=== PATIENT | female | born 1960 | race Caucasian/White ===

== ENCOUNTER 2024-02-04 15:35 | Inpatient (IN) | payer OTHER, SELFPAY ==
[2024-02-04] VITALS (14 sets, daily range): BP systolic 115–164; BP diastolic 50–85; BMI 26.8; BMI 26.0
--- NOTE | 2024-02-04 07:59 | ED.GENMED ---
History of Present Illness
<VIVI Saenz - Last Filed: 02/04/24 14:20>
General
Chief Complaint: Abdominal Pain
Source: patient
Exam Limitations: none
Time Seen by Provider: 02/04/24 07:50
Nursing documentation reviewed up to this point in time: agreed with
Travel History
Have you had any contact with someone who has COVID-19?: No
Do you have any symptoms of coronavirus? Fever > 100 degrees, chills, cough, shortness of breath, sore throat, loss of taste or smell, muscle aches, or headache?: No
History of Present Illness
History of Present Illness:
63-year-old female with past medical history of polycystic kidney disease, hypertension depression, pyelonephritis presents to the ER complaining of upper abdominal pain. She reports the past several days she has felt achy feverish and complains of
abdominal pain which radiates to her back. She points to her upper abdominal region.
She denies any nausea vomiting. She does not have an appetite. She is drinking but not eating as much.
Past History
<VIVI Saenz - Last Filed: 02/04/24 14:20>
Past History
ED Past Medical History: HTN and Other (polycystic kidney disease, diverticulosis)
ED Past Surgical History: Other (HERNIA REPAIR, TUBAL LIGATION)
Social History
Tobacco: Other (non contributory)
Alcohol: Other (non contributory)
Employment: Employed
Review of Systems
<VIVI Saenz - Last Filed: 02/04/24 14:20>
Review of Systems
Allergies reviewed?: Yes
All Other Systems: ROS reviewed and negative except as documented in HPI and ROS
Constitutional: Reports fever and fatigue
EENT: Reports no symptoms
Respiratory: Reports no symptoms
Cardiac: Reports no symptoms
ABD/GI: Reports abdominal pain; Denies vomiting
: Reports no symptoms
Musculoskeletal: Reports no symptoms
Skin: Reports no symptoms
Neurological: Reports no symptoms
Psychiatric: Reports no symptoms
Phy Exam
<VIVI Saenz - Last Filed: 02/04/24 14:20>
General Physical Exam
General Presentation: no apparent distress
General age: appears stated age
General Skin: warm and dry
General Habitus: normal
General Mental: alert
General Hydration: appears well hydrated
Cardiovascular Exam
Cardiovascular Exam: regular rate/rhythm, no murmur and normal peripheral pulses
Pulmonary Exam
Pulmonary Exam: lungs clear and no respiratory distress
Gastrointestinal Exam
Gastrointestinal Exam: soft and other (tender throughout abdomen worse RUQ )
Neurological Exam
Neurological Exam: alert and oriented x3
Musculoskeletal Exam
Musculoskeletal Exam: full ROM
Skin Exam
Skin Exam: normal color and warm/dry
Psychiatric Exam
Psychiatric Exam: normal mood/affect
Course
<VIVI Saenz - Last Filed: 02/04/24 14:20>
Orders/Labs/Results
Orders:
Orders
02/04/24 08:02
IV Insert/Care/Rem.- Treatment PRN
02/04/24 08:05
0.9% Sodium Chloride 1000 ml [Nss] 1,000 ml IV BOLUS
US Abdomen Complete/Upper Urgent
Comment:
Reason For Exam: ruq pain
02/04/24 08:33
Complete Blood Count/With Diff Urgent
Comprehensive Metabolic Panel Urgent
Lipase Urgent
02/04/24 09:34
CT Abd/Pel (IV only)-DH only Urgent
Comment:
Reason For Exam: abd pain
02/04/24 10:38
UA Reflex to Culture [Urinalysis Reflex To Culture] Urgent
Date Specimen was Collected: 02/04/24
Time Specimen was Collected: 10:31
Urine Microscopic Reflex Cult Urgent
Urine Culture Urgent
APRIL Source: U
Specimen Description:
Date Specimen was Collected: 02/04/24
Time Specimen was Collected: 10:31
02/04/24 12:33
Acetaminophen [Tylenol] 650 mg PO NOW STA
02/04/24 12:39
Chest [CR Chest - 2 Views ] Urgent
Comment:
Reason For Exam: fever
02/04/24 13:03
COVID-19 Antigen Urgent
Source: Nasal Swab
Lactic Acid Q4H
Comment: CANCEL 2nd LACTIC ACID IF 1st LACTIC ACID IS LESS THAN 2
Blood Culture Q30M
APRIL Source: Blood/Venous
Specimen Description:
Influenza A+B Rapid Molecular Urgent
APRIL Source: Nasal Swab
Specimen Description:
02/04/24 13:42
Blood Culture Q30M
APRIL Source: Blood/Venous
Specimen Description:
Abnormal Lab Results
02/04/24 02/04/24
08:33 10:38
RBC 3.59 L 10^6/uL
(4.20-5.40)
Hct 33.4 L %
(37.0-47.0)
MCH 33.7 H pg
(27.0-31.0)
Absolute Neuts (auto) 6.9 H 10^3/uL
(1.4-6.5)
Absolute Lymphs (auto) 0.7 L 10^3/uL
(1.2-3.4)
Absolute Monos (auto) 0.8 H 10^3/uL
(0.1-0.6)
Neutrophils % 82.4 H %
(42.2-75.2)
Lymphocytes % 7.7 L %
(20.5-51.1)
Sodium 129 L mmol/L
(135-145)
Glucose 110 H mg/dl
(70-99)
Total Protein 6.2 L g/dl
(6.3-8.2)
Lipase 21 L U/L
(23-300)
Ur Occult Blood Reflex 1+ A
(Negative)
Leukocyte Esterase Rfl 1+ A
(Negative)
02/04/24 08:33
02/04/24 08:33
Vital Signs
Initial and Last Documented VS:
Initial Vital Signs
Temp Pulse Resp BP Pulse Ox
100.9 F H 101 20 135/65 99
02/04/24 07:16 02/04/24 07:16 02/04/24 07:16 02/04/24 07:16 02/04/24 07:16
Last Documented Vital Signs
Temp Pulse Resp BP Pulse Ox
100 F 108 18 144/75 95
02/04/24 12:20 02/04/24 13:00 02/04/24 13:00 02/04/24 13:00 02/04/24 13:00
Deburring Machine Operator consulted with Physician
Deburring Machine Operator consulted with physician?: Yes
Name of Physician Consulted: Chun
<Ashutosh Mccollum MD - Last Filed: 02/04/24 12:51>
Orders/Labs/Results
Orders:
Orders
02/04/24 08:02
IV Insert/Care/Rem.- Treatment PRN
02/04/24 08:05
0.9% Sodium Chloride 1000 ml [Nss] 1,000 ml IV BOLUS
US Abdomen Complete/Upper Urgent
Comment:
Reason For Exam: ruq pain
02/04/24 08:33
Complete Blood Count/With Diff Urgent
Comprehensive Metabolic Panel Urgent
Lipase Urgent
02/04/24 09:34
CT Abd/Pel (IV only)-DH only Urgent
Comment:
Reason For Exam: abd pain
02/04/24 10:38
UA Reflex to Culture [Urinalysis Reflex To Culture] Urgent
Date Specimen was Collected: 02/04/24
Time Specimen was Collected: 10:31
Urine Microscopic Reflex Cult Urgent
Urine Culture Urgent
APRIL Source: U
Specimen Description:
Date Specimen was Collected: 02/04/24
Time Specimen was Collected: 10:31
02/04/24 12:33
Acetaminophen [Tylenol] 650 mg PO NOW STA
02/04/24 12:39
Chest [CR Chest - 2 Views ] Urgent
Comment:
Reason For Exam: fever
02/04/24 13:03
COVID-19 Antigen Urgent
Source: Nasal Swab
Lactic Acid Q4H
Comment: CANCEL 2nd LACTIC ACID IF 1st LACTIC ACID IS LESS THAN 2
Blood Culture Q30M
APRIL Source: Blood/Venous
Specimen Description:
Influenza A+B Rapid Molecular Urgent
APRIL Source: Nasal Swab
Specimen Description:
02/04/24 13:42
Blood Culture Q30M
APRIL Source: Blood/Venous
Specimen Description:
Abnormal Lab Results
02/04/24 02/04/24
08:33 10:38
RBC 3.59 L 10^6/uL
(4.20-5.40)
Hct 33.4 L %
(37.0-47.0)
MCH 33.7 H pg
(27.0-31.0)
Absolute Neuts (auto) 6.9 H 10^3/uL
(1.4-6.5)
Absolute Lymphs (auto) 0.7 L 10^3/uL
(1.2-3.4)
Absolute Monos (auto) 0.8 H 10^3/uL
(0.1-0.6)
Neutrophils % 82.4 H %
(42.2-75.2)
Lymphocytes % 7.7 L %
(20.5-51.1)
Sodium 129 L mmol/L
(135-145)
Glucose 110 H mg/dl
(70-99)
Total Protein 6.2 L g/dl
(6.3-8.2)
Lipase 21 L U/L
(23-300)
Ur Occult Blood Reflex 1+ A
(Negative)
Leukocyte Esterase Rfl 1+ A
(Negative)
02/04/24 08:33
02/04/24 08:33
Vital Signs
Initial and Last Documented VS:
Initial Vital Signs
Temp Pulse Resp BP Pulse Ox
100.9 F H 101 20 135/65 99
02/04/24 07:16 02/04/24 07:16 02/04/24 07:16 02/04/24 07:16 02/04/24 07:16
Last Documented Vital Signs
Temp Pulse Resp BP Pulse Ox
100 F 108 18 144/75 95
02/04/24 12:20 02/04/24 13:00 02/04/24 13:00 02/04/24 13:00 02/04/24 13:00
<VIVI Saenz - Last Filed: 02/04/24 14:20>
MDM/Problems Addressed
Differential Diagnosis Includes:
not limited to' biliary colic diverticulitis, uti/, pyelonephritis
MDM/Problems Addressed:
Patient is a 63-year-old female who presents to the ER complaining of fever chills aches and upper abdominal pain. On exam she is very tender throughout the upper abdominal area slight increase in left upper quadrant. She did arrive with a
temperature of 100.9. She denies any cough denies any urinary frequency urgency dysuria. Denies any nausea vomiting. Has felt this pain radiates to her back. On exam she has a low-grade temp as documented with a normal white count, her sodium is
mildly low at 129 urine negative. No acute findings on CAT scan or ultrasound.
Chest x-ray done though patient has no symptoms and negative. With patient's tenderness on exam in the upper abdominal region with fever and no clear diagnosis on that for further workup. Patient also found to be hyponatremic as well
<VIVI Saenz - Last Filed: 02/04/24 14:20>
*Radiology
Radiology exam reviewed: radiology read reviewed
*Critical Care Note
Total Time (30-74mins, 75-104mins- exclusive of procedures): Not Applicable
ED Attending Note
<VIVI Saenz - Last Filed: 02/04/24 14:20>
-
Portions of this chart may have been created with voice recognition software.� Occasional wrong word or��sound alike� substitutions may have occurred due to the inherent limitations of voice recognition software.
<Ashutosh Mccollum MD - Last Filed: 02/04/24 12:51>
ED Attending Note
Patient seen and examined by attending physician: Yes
I performed the substantive portion of visit, reviewed & personally made and approve the management plan that is documented in note by myself or NELY.: Yes
ED Attending Note:
2 days of general abdominal pain. Some nausea. Some vague back pain. No cough congestion urinary symptoms or other complaints. Symptoms are moderate in nature. Describes as 6 out of 10.
On exam patient's lungs are clear and equal. No CVA tenderness. Warm and dry. Perfusing well. Neck supple. Heart regular rate and rhythm no murmur. Abdomen is soft but diffuse tenderness nonlocalizing mostly epigastric and diffuse lower
quadrants. No rebound or guarding no mass or hernia
Patient has a fever. Etiology of symptoms unknown. Will chest chest x-ray COVID and flu although suspect these will be okay. Given her degree of tenderness and discomfort patient warrants inpatient management will add blood cultures and lactic
acid
Discharge Plan
Departure
Patient Disposition: Admit
Date of Disposition: 02/04/24
Time of Disposition: 14:19
Admit to: Med/Surg
Admit to doctor: hospitalist
Presentation/result/management discussed w/ accepting MD/DO: Hospitalist
Patient with high blood pressure during this ER visit?: Yes
Condition: Fair
Covid-19: Not Applicable
Discharge Problem:
Hyponatremia, Fever, Abdominal pain
Prescriptions:
No Action
escitalopram oxalate 20 MG tablet
20 mg PO DAILY
acetaminophen 325 MG tablet
650 mg PO Q4HPRN PRN (Reason: mild pain/LINCOLN/temp> 100.4F) 0RF
loperamide 2 MG capsule
2 mg PO Q6HPRN PRN (Reason: diarrhea) 0RF
pantoprazole 40 MG tablet,delayed release (DR/EC)
40 mg PO DAILY Qty: 30 0RF
lisinopril 10 MG tablet
10 mg PO DAILY Qty: 30 0RF
Referrals:
Calli Klein MD [Family Provider] -
Interventions
Interventions:
*Risk Screen - Suicide Last Done: 02/04/24 07:20
*General Assessment Last Done: 02/04/24 07:20
*Neglect/Abuse Screening Last Done: 02/04/24 07:20
ED- Fall Risk Assessment Last Done: 02/04/24 07:20
*ED COVID-19 Vaccine History Last Done: 02/04/24 07:20
UZ-Syzdmc-Pykmaiyimd Assessment Last Done: 02/04/24 08:35
ED- Neurological Assessment Last Done: 02/04/24 08:35
ED-Skin Assessment Last Done: 02/04/24 08:35
Discharge Date and Time
Print Language: THAI
--- NOTE | 2024-02-04 08:05 | EDRN ---
Laurence Lee NP in room w/ pt.
[2024-02-04] MEDS: NSS 1000 IV ×2 (08:42→17:57)
[2024-02-04 08:47] LABS: % Basophils 0.1 % (0-2); % Immature Granulocytes 0.5 % (0-0.5); % Lymphocytes 7.7 % (20.5-51.1); % Monocytes 9.3 % (1.7-9.3); % Neutrophils 82.4 % (42.2-75.2); Absolute Lymphocytes 0.7 10^3/uL (1.2-3.4); Absolute Monocytes 0.8 10^3/uL (0.1-0.6); Absolute Neutrophils 6.9 10^3/uL (1.4-6.5); Hematocrit 33.4 % (37.0-47.0); Hemoglobin 12.1 g/dL (12.0-16.0); Mean Corp Hgb Conc. 36.2 g/dL (33.0-37.0); Mean Corpuscular Hgb 33.7 pg (27.0-31.0); Mean Platelet Volume 10.4 fL (7.4-10.4); Nucleated Red Blood Cells % 0 %; Platelet Count 132 10^3/uL (130-400); Red Blood Cell Count 3.59 10^6/uL (4.20-5.40); Red Cell Dist. Width 12.2 % (11.5-14.5); White Blood Cell Count 8.4 10^3/uL (4.8-10.8)
[2024-02-04 08:56] LABS: ALT (SGPT) 19 U/L (0-35); AST (SGOT) 22 U/L (14-36); Albumin 3.7 g/dl (3.5-5.0); Alkaline Phosphatase 83 U/L (38-126); Blood Urea Nitrogen 14 mg/dl (7-17); Calcium 8.7 mg/dl (8.4-10.2); Carbon Dioxide 25 mmol/L (22-30); Chloride 100 mmol/L (98-107); Glucose 110 mg/dl (70-99); Lipase 21 U/L (23-300); Potassium 3.6 mmol/L (3.5-5.1); Sodium 129 mmol/L (135-145); Total Protein 6.2 g/dl (6.3-8.2); eGFR > 60.00
[2024-02-04 11:00] LABS: Urine Albumin Negative (Neg - Trace); Urine Bilirubin Negative (Negative); Urine Character Clear (Clear); Urine Color Yellow; Urine Glucose Negative (Negative); Urine Ketone Negative (Negative); Urine Leukocyte 1+ (Negative); Urine Nitrite Negative (Negative); Urine Occult Blood 1+ (Negative); Urine Urobilinogen Negative (Neg - 1+); Urine pH 6.5 (5.0-9.0)
[2024-02-04 11:18] LABS: Urine Squamous Cell 16-20 /LPF (Few)
[2024-02-04 11:20] LABS: Urine Red Blood Cell 0-2 /HPF (0-2)
[2024-02-04] MEDS: TYLENOL 650 MG PO ×2 (12:56→19:59)
[2024-02-04 13:26] LABS: Lactic Acid 0.9 mmol/L (0.7-2.0)
[2024-02-04 13:31] LABS: COVID-19 Antigen Negative (Negative)
--- NOTE | 2024-02-04 14:51 | EDRN ---
Pt is not cold though is hot and sweaty at this time.
--- NOTE | 2024-02-04 15:00 | EDRN ---
Dr. Weaver in to see pt at this time.
--- NOTE | 2024-02-04 15:10 | HPS.HSE ---
Family Physician
-
Family Physician: Calli Klein
Chief Complaint
-
Abd pain.
History of Present Illness
63-year-old woman with past medical history of:
polycystic kidney disease,
hypertension
depression,
pyelonephritis
Comes in complaining of upper abdominal pain. For the past several days she has felt achy, feverish, and has had mid upper abdominal pain with radiation to her back. She denies any nausea vomiting. She does not have an appetite. She is drinking
but not eating as much. States that she feels like there is a 'tight belt' over her abd. She says she recently ate a 'bad pizza.' She has had abd surgery before.
Medical History
Past Medical History
Past Medical History: Reports Other
Additional Past Medical History:
essential HTN
polycystic kidney disease,
diverticulosis
HERNIA REPAIR,
TUBAL LIGATION
Past Surgical History: Reports Other
Additional Past Surgical History:
See above
Social History
Tobacco: Non-smoker
Alcohol: Occasional
Drug: None
Personal:
Living: With Family
Family History
Family History: Not pertinent
Allergies / Home Medications
Allergies reflects when Allergies were last updated in [facility].
Home Medications with original date entered in [facility]
Allergy/Medication List:
Allergies
Allergy/AdvReac Type Severity Reaction Status Date / Time
morphine Allergy Vomiting Verified 01/14/22 19:34
Home Medications
escitalopram oxalate 20 mg tablet 20 mg PO DAILY Mental Health/Anxiety 06/30/16
lisinopril 10 mg tablet 10 mg PO DAILY #30 tabs 01/21/22
pantoprazole 40 mg tablet,delayed release 40 mg PO DAILY #30 tabs 01/21/22
escitalopram oxalate 5 mg tablet 5 mg PO DAILY 02/04/24
magnesium citrate 1 cap PO DAILY 02/04/24
therapeutic multivitamin 1 tab PO DAILY 02/04/24
Review of Systems
-
History Source: Patient
A 12 point ROS was completed and negative except as noted: Yes
Physical Exam
Vital Signs
Vital Signs
Temp Pulse Resp BP Pulse Ox
99.2 F 94 16 127/85 95
02/04/24 14:48 02/04/24 14:48 02/04/24 14:48 02/04/24 14:48 02/04/24 14:48
Physical Exam
General: Well Developed, Well Nourished, No Apparent Distress, Comfortable and Conversant
HEENT: NormoCephalic, Moist mucous membranes, Atraumatic, No Ptosis, Nose Appears Normal and Ears Appear Normal
Respiratory: Clear
Cardiac: S1/S2 and Regular Rhythm
GI: Soft, Non Distended and Tender (mildly, throughout entire abd.)
Musculoskeletal: No Clubbing, No Cyanosis and No Edema
Skin: Warm and Dry; No Rash or Jaundice
Neuro: Awake, Alert, Oriented and AO x 3
Psych: Calm
Laboratory Results
-
02/04/24 08:33
02/04/24 08:33
Laboratory Results
Lactic Acid Cancelled 02/04/24 17:00
Total Bilirubin 1.0 mg/dl (0.2-1.3) 02/04/24 08:33
AST 22 U/L (14-36) 02/04/24 08:33
ALT 19 U/L (0-35) 02/04/24 08:33
Alkaline Phosphatase 83 U/L (38-126) 02/04/24 08:33
Lipase 21 U/L (23-300) L 02/04/24 08:33
Data Reviewed
-
Lab Data: Labs Reviewed by me
Impression/Plan
-
IMPRESSION:
63 woman with abd pain. Abd CT does not show active disease. Abd US does not show active dz.
PLAN:
1. Abd pain, source not known, differential includes:
Viral gastroenteritis [Common]
Food poisoning [the 'bad pizza']
Adhesion [past abdominal surgery]
Heart related [atypical presentation]
Plan is to:
Advance diet as tolerated
MER
Repeat labs in am
2. Low Na, likely hypovolemic hyponatremia
Saline
Recheck overnight
Code: DNR ( at bedside aware)
VCD for DVTp
--- NOTE | 2024-02-04 16:12 | EDRN ---
Pt placed on quality assurance monitor at this time as ordered in admit orders, NSR.
[2024-02-04 17:43] LABS: Troponin I < 0.012 ng/ml
--- NOTE | 2024-02-04 18:27 | PTCARENOTE ---
pt arrive to unit at 1827 via stretcher from ED, at bedside. VSS. assessment and admissions completed by this nurse. pt AAOx3, oriented to unit, call recio in reach.
[2024-02-04 20:23] LABS: Troponin I 0.019 ng/ml
[2024-02-05 00:33] LABS: Troponin I < 0.012 ng/ml
[2024-02-05 04:00] VITALS: BP 152/71
[2024-02-05] MEDS: NSS 1000 IV ×2 (04:22→14:35)
[2024-02-05] MEDS: TYLENOL 650 MG PO ×3 (04:26→19:46)
[2024-02-05 05:54] LABS: Hematocrit 29.8 % (37.0-47.0); Hemoglobin 10.7 g/dL (12.0-16.0); Mean Corp Hgb Conc. 35.9 g/dL (33.0-37.0); Mean Corpuscular Volume 94.6 fL (81.0-99.0); Mean Platelet Volume 10.9 fL (7.4-10.4); Platelet Count 113 10^3/uL (130-400); Red Blood Cell Count 3.15 10^6/uL (4.20-5.40)
[2024-02-05 06:00] VITALS: BMI 26.4
[2024-02-05 06:22] LABS: Blood Urea Nitrogen 11 mg/dl (7-17); Calcium 7.9 mg/dl (8.4-10.2); Carbon Dioxide 23 mmol/L (22-30); Chloride 105 mmol/L (98-107); Estimated Creatinine Clearance 79 ml/min; Glucose 124 mg/dl (70-99); Lipase 20 U/L (23-300); Potassium 3.3 mmol/L (3.5-5.1); Sodium 134 mmol/L (135-145); eGFR > 60.00
[2024-02-05 07:00] VITALS: BP 132/71
[2024-02-05] MEDS: PROTONIX 40 MG PO ×2 (08:07→19:46)
[2024-02-05] MEDS: LEXAPRO 20 MG PO (08:07)
[2024-02-05] MEDS: ZESTRIL 10 MG PO (08:07)
[2024-02-05] MEDS: THERAGRAN 1 TABLET PO (08:07)
[2024-02-05] MEDS: MAGNESIUM OXIDE 500 MG PO (08:07)
[2024-02-05] MEDS: LEXAPRO 5 MG PO (08:07)
[2024-02-05] MEDS: STERILE WATER FOR INJECTION 10 ML IV (09:21)
[2024-02-05] MEDS: MAXIPIME 2000 MG IV (09:21)
[2024-02-05 09:52] LABS: Glycohemoglobin (HgbA1c) 5.1 % (4.0-5.6)
[2024-02-05 11:00] VITALS: BP 140/75
--- NOTE | 2024-02-05 13:01 | W.PN.HOSP.TC ---
Today's Communication/Plan
-
Continue antibiotics
ID consult
GI consult
Assessment / Plan
Assessment / Plan
Gen-AAOx3, NAD
HEENT-NC, AT, anicteric, clear oral mm
Neck-supple
CV-reg, no M, +S1/S2
Lungs-clear B/L
Abd-soft, NT, ND
Ext-no edema
Musculoskeletal-no cyanosis, clubbing
Skin-warm and dry
Neuro-grossly non-focal
Psych-calm, cooperative
E. coli sepsis -likely GI source given presentation with abdominal pain. Urinalysis without significant pyuria. Hemodynamically stable. WBC count normal. Blood cultures noted. Continue cefepime. Consult ID. Transmucosal GI migration of
bacteria suspected. Recommend outpatient colonoscopy, discussed with patient. Last colonoscopy was about 10 years ago. Follows up with Dr. Douglas.
Given persistent epigastric discomfort will consult GI. She denies melena or hematochezia.
Currently on clear liquid diet. Still with anorexia.
Abdominal ultrasound on admission without cholelithiasis or biliary ductal dilation. Hepatic and bilateral renal cysts consistent with polycystic kidney disease noted.
CT abdomen pelvis with IV contrast without acute disease.
Of note patient had E. coli bacteremia in the past, attributed to UTI.
Chronic normocytic anemia -hemoglobin at baseline.
Acute thrombocytopenia -possibly due to sepsis. Monitor for now.
Hyponatremia -possibly hypovolemic. Sodium improving.
Hypokalemia -check magnesium. Replete potassium.
Essential hypertension -stable.
DNR
Anticipated Discharge: > 48 hours
Subjective/Interval History
-
Date of Service: February 05, 2024
Patient seen and examined. Complaining of anorexia, abdominal discomfort. Denies nausea.
Objective Data
-
Labs:
Laboratory Results
02/05/24
05:27
WBC 7.0
Hgb 10.7 L
Hct 29.8 L
Plt Count 113 L
Sodium 134 L
Potassium 3.3 L
Chloride 105
Carbon Dioxide 23
BUN 11
Creatinine 0.6
Glucose 124 H
Calcium 7.9 L
Vital Signs:
Vital Signs
Temp Pulse Resp BP Pulse Ox
103.1 F H 103 18 140/75 94
02/05/24 11:00 02/05/24 11:00 02/05/24 11:00 02/05/24 11:00 02/05/24 11:00
I&O
02/04/24 02/05/24 02/06/24
06:59 06:59 06:59
Intake Total 1560 / 1560
Balance 1560 / 1560
Review of Systems
-
History Source: Patient
All other systems: Reviewed and negative
[2024-02-05 13:24] LABS: Magnesium 1.8 mg/dl (1.6-2.3)
[2024-02-05] MEDS: KCL 40 MEQ PO (14:30)
[2024-02-05] MEDS: NSS IV (14:43)
[2024-02-05 15:00] VITALS: BP 126/63
--- NOTE | 2024-02-05 16:07 | CON.ID ---
Consultation
-
Date/Time Consultation Requested: 02/05/24 8:41
Date/Time Consultation Performed: 02/05/24 16:08
Requesting Provider: Dr Prescott
Performing Provider: Dr Calderón
Reason for Consultation: Abd pain.
Chief Complaint / Past History
Chief Complaint
abdominal pain
History of Present Illness
Ms Shirley is a 63 year old feamle with AD PCKD who presented here last night for upper abdominal pain. Reports several days of malaise, subjective fevers, abdominal pain with radiation to the bck. No nausea or vomiting. Poor appetite. Relates the
pain to 'bad pizza'
Since arrival here has been febrile to 103.1 - uptrending, bp overall stable, intermittently mildly tachycardic, wbc 8.4 on arrival now 7.0, hgb 10.7, plt 113, L shift is noted, cr 0.6, lactic acid 0.9, a1c 5.1, t bili 1.0, ast 22, alkt 19, alk phos
83, lipase 20, covid pcr neg, 02/03 CXR: no acute disease, CT a/p: no acute process, innumerable cysts in the liver/kidneys, diverticulosis without diverticulitis, US: no acute disease, one of two blood cultures with E coli by PCR, currently on
cefepime 2 q12 first dose was about 9 AM, qtc acceptable, ID is consulted for assistance with management.
Past History
Additional Past Medical History:
hypertension
depression,
pyelonephritis
Additional Past Surgical History:
essential HTN
polycystic kidney disease,
diverticulosis
HERNIA REPAIR,
TUBAL LIGATION
Allergy History:
morphine Allergy (Verified 01/14/22 19:34)
Vomiting
Medications Reviewed: Yes
Social History
Tobacco: Non-Smoker
Alcohol: Occasional
Drug: None
Family History
Family History: Not Pertinent
Review of Systems
Review of Systems
General: Fever and Chills
All systems: All other systems were reviewed and were negative
Vital Signs
Temp Pulse Resp BP Pulse Ox
99.0 F 93 18 126/63 97
02/05/24 15:00 02/05/24 15:00 02/05/24 15:00 02/05/24 15:00 02/05/24 15:00
Physical Exam
Physical Exam
Constitutional: No Acute Distress
Cardiovascular: Regular Rate and S1/S2; Negative Murmur or Rub
Pulmonary: Clear and Symmetric; Negative Wheezes, Rales or Rhonchi
Gastrointestinal: Soft, Non Tender, Non Distended, Normal Bowel Sounds and Other (no peritoneal signs)
Skin: Warm and Dry; Negative Rash or Jaundice
Lab / Diagnostic Study Results
02/05/24 05:27
02/05/24 05:27
Abs Immat Gran (auto) 0.0 10^3/uL (0-0.05) 02/04/24 08:33
Absolute Neuts (auto) 6.9 10^3/uL (1.4-6.5) H 02/04/24 08:33
Absolute Lymphs (auto) 0.7 10^3/uL (1.2-3.4) L 02/04/24 08:33
Absolute Monos (auto) 0.8 10^3/uL (0.1-0.6) H 02/04/24 08:33
Absolute Basos (auto) 0.0 10^3/uL (0-0.2) 02/04/24 08:33
Immature Gran % 0.5 % (0-0.5) 02/04/24 08:33
Neutrophils % 82.4 % (42.2-75.2) H 02/04/24 08:33
Lymphocytes % 7.7 % (20.5-51.1) L 02/04/24 08:33
Monocytes % 9.3 % (1.7-9.3) 02/04/24 08:33
Eosinophils % 0.0 % (0-6) 02/04/24 08:33
Basophils % 0.1 % (0-2) 02/04/24 08:33
Lactic Acid Cancelled 02/04/24 17:00
Ur Squamous Epith Cells 16-20 /LPF (Few) 02/04/24 10:38
Microbiology Results
Micro:
02/04/24 13:03 Blood Culture - Preliminary
Blood/Venous No Growth in 24 hours- Final report to follow
02/04/24 13:42 Blood Culture - Preliminary
Blood/Venous Escherichia coli
Gram Stain - Final
02/04/24 10:38 Urine Culture - Final
Urine
02/04/24 13:03 Influenza Types A & B (ERICK) - Final
Nasal Swab Negative for Influenza A & B, NAAT
Negative results must be combined with clinical observations
and patient history.
Nucleic Acid Amplification test (NAAT)performed on the
[employer] ID NOW platform.
Assessment / Plan
E coli Bacteremia
AD PCKD
Diverticulosis without diverticulitis
- follow blood culture for finalized ID and sensi
- no need to repeat blood cultures for gram negative
- with negative CT a/p (though without contrast) and negative abd US, ua without significant pyuria agree that translocation or gastroenteritis may be the ultimate etiology
- start ceftriaxone, stop cefepime
- qtc acceptable
- follow clinically
--- NOTE | 2024-02-05 16:12 | CON.GI ---
Addendum entered and electronically signed by Radha Lott DO 02/06/24 12:57:
I saw and examined the patient.
The ALUMINUM POURER or PA's note was reviewed and I agree with the note.
Comment: Sarah seen in follow-up today, at bedside. She reports abdominal pain still present, slightly improved today. Unclear source of recurrent sepsis and relation to acute on chronic abdominal pain. She has known polycystic
kidney/liver disease. Given her description of her pain, wrapping around to her back, I am wondering if she possibly had a cyst rupture, leading to her clinical picture. She does mention that this was brought up the last time she had this
presentation in 2021, but never confirmed. Upon review of prior workup, she has never had an MRI. Recommend MRI/MRCP for further evaluation and r/o pancreaticobiliary source. Last colonoscopy in 2018-- if MRI normal, will discuss performing
colonoscopy. That said, it would be strange for her to have this same presentation twice before, with long periods of being asymptomatic and clearing blood cultures indicating source control, if the colon truly was the source of her bacteremia.
Addendum entered and electronically signed by Amanda Sims MD 02/05/24 17:28:
I saw and examined the patient.
The ALUMINUM POURER's note was reviewed and I agree with the note.
E. coli sepsis-possible translocation. Negative UA. Prior history of UTI/sepsis
History of polycystic kidney disease/hepatic cyst -CT abdomen with IV contrast- no acute pathology
Epigastric discomfort-liver test normal. Lipase 20.Last EGD 2017
plan
Continue antibiotics as per ID
PPI twice daily
If abdominal pain persist will consider EGD vs repeat imaging
If diarrhea will recommend stool studies for infection
Continue further care per medical team
Original Note:
Consultation
-
Date/Time Consultation Requested: 02/05/24 1310
Date/Time Consultation Performed: 02/05/24 1615
Requesting Provider: Kip Prescott MD
Performing Provider: VIVI Gamino, Amanda Sims MD
Reason for Consultation: anemia, sepsis, abdominal pain
Medical History
Chief Complaint / HPI
Chief Complaint: abdominal pain
History of Present Illness:
Pt is a 63yo presents with hx HTN, depression, polycystic kidney disease, pyelonephritis with admission 02/03 with mid upper abdominal pain with radiation to back and feeling of tight belt. On admission LFT's and lipase normal. Pt fever 103.1 and
Ecoli noted on blood culture with mixed sayda in urine. In reviewing with patient noted with Ecoli bacteremia in 2019 and recurrent sepsis in 2021. Pt states these symptoms began on with abdominal pain and fever on Monday. She had
decreased appetite and continued abdominal pain up to 03/04 now 01/02. Pain worse with deep breath and pressure to abdomen with feeling of belt like pain. She admits to chronic GERD on Protonix daily. She currently denies dysphagia, nausea,
vomiting, diarrhea, constipation, blood or black in stools. Last EGD 2017 Dr. Douglas no castillo's, gastritis, normal duodenum, 2018 colonoscopy [facility] perianal skin tags, IH, diverticulosis.
02/03 US with no cholelithiasis or bile duct dilation, Hepatic and bilateral renal cysts in keeping with autosomal dominant polycystic kidney disease.
02/03 CT A/P with IV only no acute process in abdomen and pelvis, innumerable hepatic and renal cysts with polypcystic disease, diverticulosis
02/03 CXR No acute disease of the chest
Past Medical History
Past Medical History: HTN, Psychiatric (depression) and Other (polycystic kidney disease, diverticulosis, hernia repair, tubal ligation, pyelonephritis, sepsis in 2019 ecoli and 2021 )
Social History
Tobacco: Non-Smoker
Alcohol: Occasional (3 drinks 1 time per week)
Drug: None
Personal:
Living: With Family
Employment: Employed
Family History
Family History: Reviewed & Not Pertinent
Allergies / Home Medications
Allergy/AdvReac Type Severity Reaction Status Date / Time
morphine Allergy Vomiting Verified 01/14/22 19:34
�Medication �Instructions �Recorded
escitalopram oxalate 20 mg tablet 20 mg PO DAILY Mental 06/30/16
Health/Anxiety
lisinopril 10 mg tablet 10 mg PO DAILY #30 tabs 01/21/22
pantoprazole 40 mg tablet,delayed 40 mg PO DAILY #30 tabs 01/21/22
release
escitalopram oxalate 5 mg tablet 5 mg PO DAILY Mental Health/Anxiety 02/04/24
magnesium citrate 1 cap PO DAILY Supplement 02/04/24
therapeutic multivitamin 1 tab PO DAILY Supplement 02/04/24
Review of Systems
-
History Source: Patient and Family
Constitutional: Reports Fever and Fatigue
EENT: Reports No Symptoms
Respiratory: Reports No Symptoms
Abdomen/GI: Reports Abdominal Pain and Other (chronic GERD on PPI, change in stool color )
: Reports No Symptoms
Musculoskeletal: Reports No Symptoms
Skin: Reports No Symptoms
Neurological: Reports Weakness
Endocrine: Reports No Symptoms
Hematologic/Lymphatic: Reports No Symptoms
Vital Signs
Temp Pulse Resp BP Pulse Ox
99.0 F 93 18 126/63 97
02/05/24 15:00 02/05/24 15:00 02/05/24 15:00 02/05/24 15:00 02/05/24 15:00
Physical Exam
Exam
General: Well Developed, Well Nourished and No Apparent Distress
HEENT: Normocephalic and Anicteric
Respiratory: Clear
Cardiac: Regular Rhythm
GI: Soft, Non Tender and Non Distended
Genito-urinary: No Costovertebral Tender
Musculoskeletal: No Clubbing and No Cyanosis
Skin: Warm and Dry
Neuro: Awake, Alert and AO x 3
Psych: Calm
Results
WBC 7.0 10^3/uL (4.8-10.8) 02/05/24 05:27
Hgb 10.7 g/dL (12.0-16.0) L 02/05/24 05:27
Hct 29.8 % (37.0-47.0) L 02/05/24 05:27
MCV 94.6 fL (81.0-99.0) 02/05/24 05:27
Plt Count 113 10^3/uL (130-400) L 02/05/24 05:27
Absolute Neuts (auto) 6.9 10^3/uL (1.4-6.5) H 02/04/24 08:33
Sodium 134 mmol/L (135-145) L 02/05/24 05:27
Potassium 3.3 mmol/L (3.5-5.1) L 02/05/24 05:27
Chloride 105 mmol/L (98-107) 02/05/24 05:27
Carbon Dioxide 23 mmol/L (22-30) 02/05/24 05:27
BUN 11 mg/dl (7-17) 02/05/24 05:27
Creatinine 0.6 mg/dL (0.6-1.0) 02/05/24 05:27
Calcium 7.9 mg/dl (8.4-10.2) L 02/05/24 05:27
Total Bilirubin 1.0 mg/dl (0.2-1.3) 02/04/24 08:33
AST 22 U/L (14-36) 02/04/24 08:33
ALT 19 U/L (0-35) 02/04/24 08:33
Alkaline Phosphatase 83 U/L (38-126) 02/04/24 08:33
Lipase 20 U/L (23-300) L 02/05/24 05:27
Diagnostic Image Results:
02/03 US with no cholelithiasis or bile duct dilation, Hepatic and bilateral renal cysts in keeping with autosomal dominant polycystic kidney disease.
02/03 CT A/P with IV only no acute process in abdomen and pelvis, innumerable hepatic and renal cysts with polypcystic disease, diverticulosis
02/03 CXR No acute disease of the chest
Prior GI Procedures:
EGD:2018 Dr. Douglas no castillo's, gastritis, normal duodenum,
Colonoscopy: 2018 [facility] perianal skin tags, IH, diverticulosis.
Assessment / Plan
-
Pt is a 63yo presents with hx HTN, depression, polycystic kidney disease, pyelonephritis and hx prior sepsis with ecoli in 2019 and sepsis in 2021. She now is noted with mid upper abdominal pain with radiation to back and feeling of tight belt. On
admission LFT's and lipase normal. Pt fever 103.1 and Ecoli noted on blood culture with mixed sayda in urine.
02/03 US with no cholelithiasis or bile duct dilation, Hepatic and bilateral renal cysts in keeping with autosomal dominant polycystic kidney disease.
02/03 CT A/P with IV only no acute process in abdomen and pelvis, innumerable hepatic and renal cysts with polycystic disease, diverticulosis
02/03 CXR No acute disease of the chest
-ecoli sepsis with fever
-prior sepsis 2019 and 2021
-polycystic kidney disease
-hepatic cysts in imaging
-depression
-hx pyelonephritis
-diverticulosis
PLAN:
etiology of recurrent sepsis unclear -- passed stones, related to polycystic process vs other
will review imaging with Dr. Sims
repeat LFT's
consider MRI
trend labs
abx per ID
pain management
-
-
Thank you for consultation and allowing me to participate in the patient's care. Please call the senior solutions engineer GI physician during the after hours with any questions or concerns.
--- NOTE | 2024-02-05 16:32 | CM ---
Alert awake oriented patient who lives with Ashutosh in a 2 story home with 2 step to enter and 7 steps to bed room . She is independent in driving and all activities of daily living.Offered VN she declined.
No SNF/VN hx
[facility]
PLAN Home no needs
[2024-02-05 17:10] LABS: ALT (SGPT) 17 U/L (0-35); AST (SGOT) 21 U/L (14-36); Alkaline Phosphatase 80 U/L (38-126); Direct Bilirubin 0.3 mg/dl (0.0-0.4); Total Bilirubin 0.7 mg/dl (0.2-1.3); Total Protein 5.5 g/dl (6.3-8.2)
[2024-02-05] MEDS: STERILE WATER FOR INJECTION 20 ML IV (17:18)
[2024-02-05] MEDS: ROCEPHIN 2000 MG IV (17:18)
[2024-02-05 19:00] VITALS: BP 142/70
[2024-02-05 23:00] VITALS: BP 120/58
[2024-02-06] VITALS (8 sets, daily range): BP systolic 118–144; BP diastolic 61–76; BMI 26.9
[2024-02-06] MEDS: TYLENOL 650 MG PO ×2 (03:13→16:26)
[2024-02-06] MEDS: NSS 1000 IV (05:25)
[2024-02-06 05:40] LABS: % Basophils 0.2 % (0-2); % Eosinophils 0.2 % (0-6); % Immature Granulocytes 0.5 % (0-0.5); % Lymphocytes 8.3 % (20.5-51.1); % Monocytes 10.3 % (1.7-9.3); % Neutrophils 80.5 % (42.2-75.2); Absolute Lymphocytes 0.5 10^3/uL (1.2-3.4); Absolute Monocytes 0.6 10^3/uL (0.1-0.6); Absolute Neutrophils 4.8 10^3/uL (1.4-6.5); Hematocrit 27.7 % (37.0-47.0); Mean Corp Hgb Conc. 36.1 g/dL (33.0-37.0); Mean Corpuscular Hgb 33.8 pg (27.0-31.0); Mean Corpuscular Volume 93.6 fL (81.0-99.0); Mean Platelet Volume 10.6 fL (7.4-10.4); Nucleated Red Blood Cells % 0 %; Platelet Count 116 10^3/uL (130-400); Red Blood Cell Count 2.96 10^6/uL (4.20-5.40); Red Cell Dist. Width 12.1 % (11.5-14.5); White Blood Cell Count 5.9 10^3/uL (4.8-10.8)
[2024-02-06 06:06] LABS: ALT (SGPT) 17 U/L (0-35); AST (SGOT) 21 U/L (14-36); Albumin 2.7 g/dl (3.5-5.0); Alkaline Phosphatase 84 U/L (38-126); Blood Urea Nitrogen 9 mg/dl (7-17); Calcium 7.9 mg/dl (8.4-10.2); Carbon Dioxide 23 mmol/L (22-30); Chloride 106 mmol/L (98-107); Estimated Creatinine Clearance 80 ml/min; Glucose 107 mg/dl (70-99); Potassium 3.6 mmol/L (3.5-5.1); Sodium 135 mmol/L (135-145); Total Bilirubin 0.5 mg/dl (0.2-1.3); Total Protein 5.3 g/dl (6.3-8.2); eGFR > 60.00
[2024-02-06] MEDS: PROTONIX 40 MG PO ×2 (07:23→19:44)
[2024-02-06] MEDS: LEXAPRO 5 MG PO (07:23)
[2024-02-06] MEDS: MAGNESIUM OXIDE 500 MG PO (07:23)
[2024-02-06] MEDS: ZESTRIL 10 MG PO (07:23)
[2024-02-06] MEDS: THERAGRAN 1 TABLET PO (07:23)
[2024-02-06] MEDS: LEXAPRO 20 MG PO (07:23)
--- NOTE | 2024-02-06 10:34 | W.PN.HOSP.TC ---
Today's Communication/Plan
-
Advance diet
Check stool studies
Assessment / Plan
Assessment / Plan
Gen-AAOx3, NAD
HEENT-NC, AT, anicteric, clear oral mm
Neck-supple
CV-reg, no M, +S1/S2
Lungs-clear B/L
Abd-soft, NT, ND
Ext-no edema
Musculoskeletal-no cyanosis, clubbing
Skin-warm and dry
Neuro-grossly non-focal
Psych-calm, cooperative
E. coli sepsis -likely GI source given presentation with abdominal pain. Transmucosal GI migration of bacteria suspected. Recommend outpatient colonoscopy, discussed with patient. Last colonoscopy was about 10 years ago. Follows up with Dr. Douglas.
Appreciate ID and GI input.
Stool studies ordered, discussed with patient and nurse.
Currently on clear liquid diet, advance to full liquids, low lactose.
Abdominal ultrasound on admission without cholelithiasis or biliary ductal dilation. Hepatic and bilateral renal cysts consistent with polycystic kidney disease noted.
CT abdomen pelvis with IV contrast without acute disease.
Of note patient had E. coli bacteremia in the past, attributed to UTI.
Chronic normocytic anemia -hemoglobin at baseline.
Acute thrombocytopenia -possibly due to sepsis. Monitor for now.
Hyponatremia -possibly hypovolemic. Sodium improving.
Hypokalemia -improved.
Essential hypertension -stable.
DNR
Anticipated Discharge: Within 24 hours
Subjective/Interval History
-
Date of Service: February 06, 2024
Patient seen and examined. Abdominal pain somewhat less today, 4 out of 10. Had diarrhea this morning. Denies nausea or vomiting.
Objective Data
-
Labs:
Laboratory Results
02/06/24
05:30
WBC 5.9
Hgb 10.0 L
Hct 27.7 L
Plt Count 116 L
Sodium 135
Potassium 3.6
Chloride 106
Carbon Dioxide 23
BUN 9
Creatinine 0.6
Glucose 107 H
Calcium 7.9 L
Total Bilirubin 0.5
AST 21
ALT 17
Alkaline Phosphatase 84
Vital Signs:
Vital Signs
Temp Pulse Resp BP Pulse Ox
98.3 F 79 18 132/68 96
02/06/24 07:00 02/06/24 07:00 02/06/24 07:00 02/06/24 07:00 02/06/24 07:00
I&O
02/05/24 02/06/24 02/07/24
06:59 06:59 06:59
Intake Total 1560 / 1560 2039
Balance 1560 / 1560 2039
Review of Systems
-
History Source: Patient
All other systems: Reviewed and negative
--- NOTE | 2024-02-06 16:50 | W.PN.ID1 ---
Date of Service
Date of Service: February 06, 2024
Today's Communication
- continue ceftriaxone for today, if no improvement in fever curve overnight will likely switch
Assessment / Plan
E coli Bacteremia
AD PCKD
Diverticulosis without diverticulitis
- follow blood culture for finalized ID and sensi
- continue ceftriaxone for today, if no improvement in fever curve overnight will likely switch
- qtc acceptable
- follow clinically
Chief Complaint
-: Fever and Bacteremia
Subjective / Review of Systems
fevers ongoing
bp stable
without leukocytosis
cr stable
sensi pending
'I feel the same, not too bad, no better'
minimal abdominal pain
no new complaints
Vital Signs / Physical Exam
Vital Signs
Vital Signs
Temp Pulse Resp BP Pulse Ox
102.2 F H 101 18 144/76 96
02/06/24 16:25 02/06/24 16:25 02/06/24 16:25 02/06/24 16:25 02/06/24 16:25
Physical Exam
Constitutional: No Acute Distress
Cardiovascular: Regular Rate and S1/S2; Negative Murmur or Rub
Pulmonary: Clear and Symmetric; Negative Wheezes or Rales
Gastrointestinal: Soft, Non Tender, Non Distended and Normal Bowel Sounds
Skin: Warm and Dry; Negative Rash or Jaundice
Objective Data
Lab Data
Lab Results
02/06/24 05:30
02/06/24 05:30
Estimated Creat Clear 80 ml/min 02/06/24 05:30
Lactic Acid Cancelled 02/04/24 17:00
Total Bilirubin 0.5 mg/dl (0.2-1.3) 02/06/24 05:30
AST 21 U/L (14-36) 05/14/24 05:30
ALT 17 U/L (0-35) 02/06/24 05:30
Alkaline Phosphatase 84 U/L (38-126) 02/06/24 05:30
Most recent labs reviewed.
Micro Results:
02/06/24 14:55 Salmonella/Shigella Culture - Pending
Feces/Stool Campylobacter Culture - Pending
Shiga Toxin Test - Pending
Stool Leukocytes - Final
02/06/24 14:55 C. difficile GDH Antigen & Toxins - Final
Feces/Stool Negative for toxigenic C.difficile
02/04/24 13:03 Blood Culture - Preliminary
Blood/Venous No Growth in 48 hours- Final report to follow
02/04/24 13:42 Blood Culture - Preliminary
Blood/Venous Escherichia coli
Gram Stain - Final
02/04/24 10:38 Urine Culture - Final
Urine
02/04/24 13:03 Influenza Types A & B (ERICK) - Final
Nasal Swab Negative for Influenza A & B, NAAT
Negative results must be combined with clinical observations
and patient history.
Nucleic Acid Amplification test (NAAT)performed on the
[employer] platform.
[2024-02-06] MEDS: STERILE WATER FOR INJECTION 20 ML IV (17:20)
[2024-02-06] MEDS: ROCEPHIN 2000 MG IV (17:20)
[2024-02-07] MEDS: TYLENOL 650 MG PO (02:55)
--- NOTE | 2024-02-07 03:07 | DOWNTIME ---
There was a [employer] Downtime on 02/06/2024 from 0100 to 02/07/2024 at 0300. Downtime documentation of patient's care, including medication administrations, has been reconciled in the electronic record per guidelines. Refer to the
patient's paper chart under the miscellaneous tab to see printed paper medication records and downtime forms.
[2024-02-07 03:09] VITALS: BP 129/63
[2024-02-07 06:00] VITALS: BMI 26.7
[2024-02-07 06:06] LABS: % Basophils 0.4 % (0-2); % Eosinophils 0.8 % (0-6); % Immature Granulocytes 0.4 % (0-0.5); % Lymphocytes 16.5 % (20.5-51.1); % Monocytes 9.8 % (1.7-9.3); % Neutrophils 72.1 % (42.2-75.2); Absolute Lymphocytes 0.8 10^3/uL (1.2-3.4); Absolute Monocytes 0.5 10^3/uL (0.1-0.6); Absolute Neutrophils 3.7 10^3/uL (1.4-6.5); Hematocrit 30.4 % (37.0-47.0); Hemoglobin 10.7 g/dL (12.0-16.0); Mean Corp Hgb Conc. 35.2 g/dL (33.0-37.0); Mean Corpuscular Volume 93.8 fL (81.0-99.0); Mean Platelet Volume 10.6 fL (7.4-10.4); Nucleated Red Blood Cells % 0 %; Platelet Count 150 10^3/uL (130-400); Red Blood Cell Count 3.24 10^6/uL (4.20-5.40); Red Cell Dist. Width 12.1 % (11.5-14.5); White Blood Cell Count 5.1 10^3/uL (4.8-10.8)
[2024-02-07 06:24] LABS: ALT (SGPT) 18 U/L (0-35); AST (SGOT) 22 U/L (14-36); Albumin 2.9 g/dl (3.5-5.0); Alkaline Phosphatase 88 U/L (38-126); Blood Urea Nitrogen 7 mg/dl (7-17); Calcium 8.3 mg/dl (8.4-10.2); Carbon Dioxide 27 mmol/L (22-30); Chloride 105 mmol/L (98-107); Estimated Creatinine Clearance 80 ml/min; Glucose 95 mg/dl (70-99); Potassium 3.7 mmol/L (3.5-5.1); Sodium 137 mmol/L (135-145); Total Bilirubin 0.4 mg/dl (0.2-1.3); Total Protein 5.4 g/dl (6.3-8.2); eGFR > 60.00
[2024-02-07 07:00] VITALS: BP 133/69
--- NOTE | 2024-02-07 09:03 | W.PN.GI.CBS2 ---
Addendum entered and electronically signed by Radha Lott DO 02/07/24 10:22:
I saw and examined the patient.
The PLANT BUYER or PA's note was reviewed and I agree with the note.
Comment: Patient complains of abdominal pain, but improved. Afebrile overnight, last fever yesterday at 4 pm. MRI reviewed by myself and discussed with patient-- significant burden of cysts in the liver and kidney with evidence of hemorrhagic kidney
cysts-- possible culprit of bacteremia is translocation from cysts. It certainly could explain the recurrent presentation and unclear source. Defer abx treatment to ID. Stool studies pending, c.diff neg. Will plan to perform colonoscopy as
outpatient. Will have our schedulers reach out to patient to schedule this. GI will sign off, please call with questions.
Original Note:
Today's Communication / Plan
-
etiology of recurrent sepsis unclear -- passed stones, related to polycystic process, gastroenteritis vs other
last fever 4 PM 02/05
stool studies with neg c-diff other cx pending
reviewed MRI with patient and Dr. Lott
reviewed with hx know polycystic renal disease since age 41 and stopped follow up with renal several years back -- was not aware of multiple liver cysts
discussed with ID for possible translocation with Ecoli and multiple cysts
will also set up for OP office visit to discuss colonoscopy to exclude any other pathology for bacteremia
add low fat diet
Assessment / Plan
-
Pt is a 63yo presents with hx HTN, depression, polycystic kidney disease, pyelonephritis and hx prior sepsis with ecoli in 2019 and sepsis in 2021. She now is noted with mid upper abdominal pain with radiation to back and feeling of tight belt. On
admission LFT's and lipase normal. Pt fever 103.1 and Ecoli noted on blood culture with mixed sayda in urine.
02/03 US with no cholelithiasis or bile duct dilation, Hepatic and bilateral renal cysts in keeping with autosomal dominant polycystic kidney disease.
02/03 CT A/P with IV only no acute process in abdomen and pelvis, innumerable hepatic and renal cysts with polycystic disease, diverticulosis
02/03 CXR No acute disease of the chest
02/05 MR abd
1. SEVERE POLYCYSTIC LIVER DISEASE.
2. AUTOSOMAL DOMINANT POLYCYSTIC KIDNEY DISEASE with innumerable bilateral simple and small hemorrhagic renal cysts.
3. Mild extrahepatic biliary dilatation.
4. Duodenal diverticulosis.
5. Severe diverticulosis in the descending and sigmoid colon.
6. Minimal bilateral pleural effusions.
7. Severe discogenic degenerative disease and facet joint arthrosis in the lower lumbar spine.
-ecoli sepsis with fever
-prior sepsis 2019 and 2021
-polycystic kidney disease
-hepatic cysts in imaging
-depression
-hx pyelonephritis
-diverticulosis
PLAN:
etiology of recurrent sepsis unclear -- passed stones, related to polycystic process, gastroenteritis vs other
last fever 4 PM 02/05
stool studies with neg c-diff other cx pending
reviewed MRI with patient and Dr. Lott
reviewed with hx know polycystic renal disease since age 41 and stopped follow up with renal several years back -- was not aware of multiple liver cysts
discussed with ID for possible translocation with Ecoli and multiple cysts
will also set up for OP office visit to discuss colonoscopy to exclude any other pathology for bacteremia
add low fat diet
Subjective
Subjective
Date of Service: February 07, 2024
pt feeling better, minimal abdominal pain, asking for increased diet, tolerating clears -- fever curve slow improvement last temp 02/05 1625
Objective
Data Reviewed
Laboratory Data:
Laboratory Results
02/07/24 05:30
02/07/24 05:30
Laboratory Results
Magnesium 1.8 mg/dl (1.6-2.3) 02/05/24 05:27
Total Bilirubin 0.4 mg/dl (0.2-1.3) 02/07/24 05:30
AST 22 U/L (14-36) 02/07/24 05:30
ALT 18 U/L (0-35) 02/07/24 05:30
Alkaline Phosphatase 88 U/L (38-126) 02/07/24 05:30
Lipase 20 U/L (23-300) L 02/05/24 05:27
Vital Signs and I&O:
Vital Signs
Temp Pulse Resp BP Pulse Ox
98.1 F 73 16 133/69 96
02/07/24 07:00 02/07/24 07:00 02/07/24 07:00 02/07/24 07:00 02/07/24 07:00
I&O
02/06/24 02/07/24 02/08/24
06:59 06:59 06:59
Intake Total 2039 1320 / 1320 400 / 400
Balance 2039 / 2039 1320 / 1320 400 / 400
Physical Exam
Physical Exam
HEENT: Anicteric and Moist mucous membranes
Cardiology: Normal Sinus Rhythm
Pulmonary: Clear
GI: Soft, Non Distended and Other (upper abdominal fullness )
Extremities: No Edema
Neuro: Non Focal
[2024-02-07] MEDS: ZESTRIL 10 MG PO (09:12)
[2024-02-07] MEDS: PROTONIX 40 MG PO (09:12)
[2024-02-07] MEDS: MAGNESIUM OXIDE 500 MG PO (09:12)
[2024-02-07] MEDS: LEXAPRO 5 MG PO (09:14)
[2024-02-07] MEDS: THERAGRAN 1 TABLET PO (09:14)
[2024-02-07] MEDS: LEXAPRO 20 MG PO (09:14)
[2024-02-07 11:00] VITALS: BP 143/79
--- NOTE | 2024-02-07 11:04 | W.PN.HOSP.TC ---
Addendum entered and electronically signed by Kip Prescott DO 02/07/24 11:16:
I spoke with infectious disease. They are okay with discharge home today on ciprofloxacin 500 mg twice daily for 5 more days.
Original Note:
Today's Communication/Plan
-
Await ID input
Assessment / Plan
Assessment / Plan
Gen-AAOx3, NAD
HEENT-NC, AT, anicteric, clear oral mm
Neck-supple
CV-reg, no M, +S1/S2
Lungs-clear B/L
Abd-soft, NT, ND
Ext-no edema
Musculoskeletal-no cyanosis, clubbing
Skin-warm and dry
Neuro-grossly non-focal
Psych-calm, cooperative
E. coli sepsis -source unclear but certainly ruptured hepatic cyst possible. Ruptured renal cyst less likely given lack of hematuria. Recommend outpatient colonoscopy, discussed with patient. Last colonoscopy was about 6 years ago. Follows up
with Dr. Douglas. Abdominal MRI results noted, discussed with patient.
Appreciate ID and GI input.
Stool studies ordered, discussed with patient and nurse.
Currently on clear liquid diet, advance to full liquids, low lactose.
Abdominal ultrasound on admission without cholelithiasis or biliary ductal dilation. Hepatic and bilateral renal cysts consistent with polycystic kidney disease noted.
CT abdomen pelvis with IV contrast without acute disease.
Of note patient had E. coli bacteremia in the past, attributed to UTI.
Can change to oral antibiotics and discharge today if okay with infectious disease.
Chronic normocytic anemia -hemoglobin at baseline.
Acute thrombocytopenia -possibly due to sepsis. Monitor for now. Counts normalized.
Hyponatremia -possibly hypovolemic. Sodium improving.
Hypokalemia -improved.
Essential hypertension -stable.
DNR
Anticipated Discharge: Today
Subjective/Interval History
-
Date of Service: February 07, 2024
Patient seen and examined. Feeling better, less abdominal pain. Tolerating diet. No new complaints.
Objective Data
-
Labs:
Laboratory Results
02/07/24
05:30
WBC 5.1
Hgb 10.7 L
Hct 30.4 L
Plt Count 150 D
Sodium 137
Potassium 3.7
Chloride 105
Carbon Dioxide 27
BUN 7
Creatinine 0.6
Glucose 95
Calcium 8.3 L
Total Bilirubin 0.4
AST 22
ALT 18
Alkaline Phosphatase 88
Vital Signs:
Vital Signs
Temp Pulse Resp BP Pulse Ox
98.1 F 73 16 133/69 96
02/07/24 07:00 02/07/24 07:00 02/07/24 07:00 02/07/24 07:00 02/07/24 07:00
I&O
02/06/24 02/07/24 02/08/24
06:59 06:59 06:59
Intake Total 2039 1320 / 1320 400 / 400
Balance 2039 1320 / 1320 400 / 400
Review of Systems
-
History Source: Patient
All other systems: Reviewed and negative
--- NOTE | 2024-02-07 11:15 | W.DS.TRANS ---
DC Summary - Educational Technician
-
Discharge Instructions:
Discharge Diagnosis/Procedures Sepsis, anemia, electrolyte abnormalities,
polycystic liver and kidney disease
Diet Low Fiber
Activity As tolerated
Driving Restrictions As prior to admission
Bathing Restrictions None
Instructions:
Stand-Alone Forms:
Changes to Home Medications: No
Discharge Medications:
DC Medications w/original date entered in [employer]
escitalopram oxalate 20 mg tablet 20 mg PO DAILY Mental Health/Anxiety 06/30/16
lisinopril 10 mg tablet 10 mg PO DAILY #30 tabs 01/21/22
pantoprazole 40 mg tablet,delayed release 40 mg PO DAILY #30 tabs 01/21/22
escitalopram oxalate 5 mg tablet 5 mg PO DAILY Mental Health/Anxiety 02/04/24
magnesium citrate 1 cap PO DAILY Supplement 02/04/24
therapeutic multivitamin 1 tab PO DAILY Supplement 02/04/24
ciprofloxacin HCl 500 mg tablet 500 mg PO BID #10 tabs 02/07/24
Home Medication Changes
Pending Results: No
--- NOTE | 2024-02-07 16:02 | CM ---
MD entered order for dc.
Spoke with pt she said Rufino will drive her home.
Offered VN she declined need.
PLAN Home with no needs
== END 2024-02-07 12:10 | disposition home or self-care (01) | DRG 872 ==
LOC: 3 WEST ACU 15:35
PROVIDERS: Nurse Practitioner; ADMITTING PHYSICIAN Internal Medicine; ATTENDING PHYSICIAN Hospitalist; CONSULT PHYSICIAN Internal Medicine Gastroenterology; CONSULT PHYSICIAN Student in an Organized Health Care Education/Training Program; EMERGENCY PHYSICIAN Emergency Medicine; FAMILY PHYSICIAN Family Medicine
DX: A41.51 Sepsis due to Escherichia coli [E. coli] (principal); Q61.3 Polycystic kidney, unspecified; E87.1 Hypo-osmolality and hyponatremia; Q44.6 Cystic disease of liver; K57.50 Diverticulosis of both small and large intestine without perforation or abscess without bleeding; I10 Essential (primary) hypertension; F32.A Depression, unspecified; E86.1 Hypovolemia; K76.89 Other specified diseases of liver; D64.9 Anemia, unspecified; K21.9 Gastro-esophageal reflux disease without esophagitis; D69.6 Thrombocytopenia, unspecified; E87.6 Hypokalemia; Z66 Do not resuscitate; Z88.5 Allergy status to narcotic agent; Z87.440 Personal history of urinary (tract) infections; Z11.52 Encounter for screening for COVID-19
CPT/HCPCS: 71046; 74177; 74183; 76700; 80053; 81003; 81015; 82248; 83036; 83605; 83690; 83735; 84484; 85025; 85027; 87040; 87045; 87046; 87077; 87086; 87149; 87186; 87205; 87324; 87427; 87449; 87502; 87811; 89055; 93005; 96360; 99285; A9575; Q9967

== ENCOUNTER → 2024-03-22 06:22 | Day surgery (SDC) | payer OTHER, SELFPAY | LOC: GI 06:22 | PROVIDERS: ATTENDING PHYSICIAN Internal Medicine | DX: R93.3 Abnormal findings on diagnostic imaging of other parts of digestive tract (principal); R10.9 Unspecified abdominal pain; K57.30 Diverticulosis of large intestine without perforation or abscess without bleeding; K64.9 Unspecified hemorrhoids; K58.9 Irritable bowel syndrome, unspecified; R10.13 Epigastric pain; K44.9 Diaphragmatic hernia without obstruction or gangrene; K31.7 Polyp of stomach and duodenum; K31.89 Other diseases of stomach and duodenum; K29.50 Unspecified chronic gastritis without bleeding | CPT/HCPCS: 45378; 43239; 88305; 88342 ==

== ENCOUNTER → 2025-04-16 09:04 | Outpatient (REF) | payer OTHER, SELFPAY | LOC: HWRAD 09:04 | PROVIDERS: ATTENDING PHYSICIAN Physician Assistant; FAMILY PHYSICIAN Family Medicine | DX: R22.9 Localized swelling, mass and lump, unspecified (principal) | CPT/HCPCS: 70480 ==